=== PATIENT | male | born 1965 ===

== ENCOUNTER 2018-01-26 00:34 | Emergency (ER) | payer MEDICARE ==
--- NOTE | 2018-01-26 00:39 | ED Physician Documentation ---
General Adult - HISTORIAN Historian: patient - HPI Stated Complaint: high blood sugar Chief Complaint: General Adult Onset: hours (2) Timing: better Severity: mild Further Comments: yes (He notes running out of NPH and he had a "high" reading on his glucometer. Notes he took 46-49 units of NPH at 1130 pm and about 15 min after was still reading hi so he came to ER. He has no symnptoms a all. He notes eating chocolate and peanut butter crackers recently. He does not consider himself a controlled diabetic) Last known Well Code/Unknown Code: Unknown - ROS CONST: no problems EYES/ENT: denies: problems with vision CVS/RESP: denies: shortness of breath GI/: denies: problems urinating, nausea MS/SKIN/LYMPH: denies: rash NEURO/PSYCH: denies: headache - PAST HX Past History: hypertension Other History: diabetes Type 2 Immunizations: UTD Allergies/Adverse Reactions: Allergies Allergy/AdvReac Type Severity Reaction Status Date / Time Penicillins Allergy Intermediate Rash Verified 01/26/18 01:11 Home Medications: Ambulatory Orders Medication Instructions Recorded Hum Insulin NPH/Reg Insulin Hm 45 unit SQ HS 01/26/18 [Novolin 70-30 [place]] Hum Insulin NPH/Reg Insulin Hm 70 unit SQ AM 01/26/18 [Novolin 70-30 [place]] - SOCIAL HX Smoking History: non-smoker Alcohol Use: none Drug Use: none - FAMILY HX Family History: No - REVIEWED ASSESSMENTS Nursing Assessment Reviewed: Yes Vitals Reviewed: Yes Progress - Progress Progress: 0150: in room laughing with visitor DG 0230: resting in room. No complaints DG 0315: planned discussed and pt agreeable General Adult Physical Exam - PHYSICAL EXAM GENERAL APPEARANCE: no distress EENT: eye inspection normal, ENT inspection normal, no signs of dehydration NECK: normal inspection RESPIRATORY: no resp distress, chest non-tender, breath sounds normal CVS: reg rate & rhythm, heart sounds normal, equal pulses, no murmur ABDOMEN: soft, no distension SKIN: warm/dry, normal color EXTREMITIES: non-tender, normal range of motion, no evidence of injury, no edema NEURO: oriented X3 Discharge Clincal Impression: Hyperglycemia Comments: 1. Continue home meds 2. Obtain insulin from pharmacy 3. Follow up with PCP Monday 4. Return to ER for any concerns Condition: Stable Disposition: 01 HOME, SELF-CARE Decision to Admit: NO Date of Decison to Admit: 01/26/18 Decision Time: 03:15
[2018-01-26] MEDS: 0.9 % SODIUM CHLORIDE 1,000 ML IV ONE ×2 (01:05→02:05)
[2018-01-26] MEDS: INSULIN REGULAR, HUMAN 100 UNIT/ML 3ML VIAL IV ONE ×2 (01:25→02:00)
[2018-01-26 03:41] VITALS: BP 116/65
[2018-01-26 07:39] LABS: MEAN CORPUSCULAR HEMOGLOBIN 31.6 pg (28.0-34.0); eGFR (Non-African) > 60
[2018-01-26 07:40] LABS: BASOPHILS % 0.6 (0.0-1.5); MONOCYTES % 5.1 % (0.0-11.0)
[2018-01-26 08:14] LABS: APPEARANCE,URINE CLEAR (CLEAR); COLOR,URINE YELLOW (YELLOW); OCCULT BLOOD,URINE TRACE-INTACT (NEGATIVE); PH URINE 6.5 (5.0 - 8.0); UROBILINOGEN URINE 0.2 Eu (0.2-1.0)
[2018-01-26 08:35] LABS: METHYLENEDIOXYMETHAMPHETAMINE NEGATIVE ng/mL (<500)
[2018-01-26 08:40] LABS: CANNABINOIDS NEGATIVE ng/mL (< 50)
== END 2018-01-26 03:30 | disposition home or self-care (01) ==
LOC: ED 00:34
DX: E11.65 Type 2 diabetes mellitus with hyperglycemia (principal); Z79.4 Long term (current) use of insulin; Z79.899 Other long term (current) drug therapy
CPT/HCPCS: 36415; 80053; 81002; 85025; 96365; 99283; 99284; G0480; G0481; J1815; J7030; 80320; 80377; S1016